=== PATIENT | male | born 1985 | race Hispanic/Latino ===

== ENCOUNTER 2024-07-30 20:49 | Inpatient (IN) | payer SELFPAY ==
[~2024-07-30 20:49] MED LIST: Iopamidol-370 76% 500 ML MDV (1 ML CHARGE) ONE
[2024-07-30 21:57] LABS: Hematocrit 41.8 % (42.0-52.0); Hemoglobin 14.5 g/dL (14.0-18.0); Mean Corpuscular HGB CONC 34.7 g/dL (32.0-36.0); Mean Corpuscular Hemoglobin 30.3 pg (27.0-31.0); Mean Corpuscular Volume 87.4 fL (78.0-98.0); Platelet Count 334 10x3/uL (130-400); RBC Distribution Width 11.7 % (11.5-14.5); Red Blood Cell (RBC) Count 4.78 mill/uL (4.70-6.10)
[2024-07-30 22:12] LABS: Chloride 102 mmol/L (98-107); Potassium 3.8 mmol/L (3.5-5.1); Sodium 135 mmol/L (136-145)
[2024-07-30 22:18] LABS: ALT (SGPT) 17 U/L (8-55); AST (SGOT) 15 U/L (5-34); Albumin 3.1 g/dL (3.5-5.0); Alkaline Phosphatase 84 U/L (40-110); Anion Gap 14 mmol/L (10-20); BUN (Urea Nitrogen) 10 mg/dL (8.9-20.6); Bilirubin, Total 0.9 mg/dL (0.2-1.2); Calc. Creatinine Clearance 0 mL/min (70-130); Calcium 8.7 mg/dL (7.8-10.44); Carbon Dioxide 24 mmol/L (22-29); Estimated GFR 113; Globulin 5.3 g/dL (2.4-3.5); Glucose 134 mg/dL (70-105); Lipase 11 U/L (8-78); Protein, Total 8.4 g/dL (6.0-8.3)
[2024-07-30 22:20] LABS: Bacteria/HPF None Seen HPF (None Seen); Bilirubin Negative (Negative); Blood, Urine 1+ (Negative); CAUTI Indications for Culture Fever or rigors; Clarity Clear (Clear); Glucose, Urine (Dipstick) Normal (Negative); Ketone, Urine Trace mg/dL (Negative); Leukocyte Negative Leu/uL (Negative); Nitrite Negative (Negative); Protein, Urine (Dipstick) 20 mg/dL (Neg-Trace); RBC/HPF 0-3 HPF (0-3); Specific Gravity, Urine 1.008 (1.002-1.036); Squamous Epithelial None Seen HPF (0-3); Urobilinogen Normal mg/dL (Less than 2); WBC/HPF 0-3 HPF (0-3)
[2024-07-30 22:23] LABS: Band 3 % (5-11); Eosinophils 30 % (0-10); Lymphocytes 12 % (21-51); Monocytes 4 % (0-10); Neutrophil 50 % (42-75); Plasma Cells 0 % (0-0); Platelet Adequacy Comment Appears Adequate; Total Cell Count 100
[2024-07-30 22:28] LABS: Urine Culture Reflex No No
[2024-07-30] MEDS ORDERED: Ketorolac Tromethamine 30 MG (1 mL) VIAL ONE (22:49)
[2024-07-31] MEDS ORDERED: cefTRIAXone (ROCEPHIN) 2 GM VIAL ONE (01:34)
[2024-07-31] MEDS ORDERED: Sodium Chloride 0.9% 100 ML ONE (01:34)
[2024-07-31] MEDS ORDERED: Azithromycin 500 MG VIAL ONE (02:18)
[2024-07-31] MEDS ORDERED: Dextrose 5% in Water 1,000 ML IV PRN (02:56)
[2024-07-31] MEDS ORDERED: Dextrose 50% Abboject 50 ML SYRINGE SLOW IVP PRN (02:56)
[2024-07-31] MEDS ORDERED: Glucagon 1 MG/ML KIT IM PRN (02:56)
[2024-07-31 04:24] LABS: Legionella Urinary Ag Negative (Negative); Strep pneumo Urine Ag NEGATIVE (NEGATIVE)
[2024-07-31 04:59] LABS: Hematocrit 38.4 % (42.0-52.0); Hemoglobin 13.2 g/dL (14.0-18.0); Mean Corpuscular HGB CONC 34.4 g/dL (32.0-36.0); Mean Corpuscular Hemoglobin 30.6 pg (27.0-31.0); Mean Corpuscular Volume 88.9 fL (78.0-98.0); Mean Platelet Volume 9.3 fL (7.4-10.4); Platelet Count 279 10x3/uL (130-400); RBC Distribution Width 11.8 % (11.5-14.5); Red Blood Cell (RBC) Count 4.32 mill/uL (4.70-6.10)
[2024-07-31 05:03] LABS: Anion Gap 13 mmol/L (10-20); BUN (Urea Nitrogen) 8 mg/dL (8.9-20.6); Calc. Creatinine Clearance 120 mL/min (70-130); Calcium 8.1 mg/dL (7.8-10.44); Carbon Dioxide 21 mmol/L (22-29); Chloride 107 mmol/L (98-107); Estimated GFR 123; Glucose 102 mg/dL (70-105); Potassium 3.6 mmol/L (3.5-5.1); Sodium 137 mmol/L (136-145)
[2024-07-31 05:30] LABS: Band 8 % (5-11); Eosinophils 46 % (0-10); Lymphocytes 7 % (21-51); Monocytes 4 % (0-10); Neutrophil 35 % (42-75); Platelet Adequacy Comment Platelets Normal
[2024-07-31] MEDS: Pantoprazole DR 40 MG TAB PO SCH (08:17)
[2024-07-31] MEDS: Acetaminophen 325 MG TAB PO PRN (15:29)
[2024-07-31] MEDS: Benzonatate 100 MG CAP PO PRN (15:32)
[2024-07-31] MEDS: guaiFENesin ER 600 MG TAB PO SCH (20:07)
[2024-07-31] MEDS: Insulin Lispro 100 UNIT/ML 10 ML VIAL SC PRN (22:16)
[2024-08-01] MEDS: Azithromycin 500 MG VIAL ONE (01:57)
[2024-08-01] MEDS: cefTRIAXone\\ROCEPHIN 1 GM in Sodium Chloride 0.9% 100 ML IVPB SCH (01:59)
[2024-08-01] MEDS: Azithromycin 500 MG in Sodium Chloride 0.9% 250 ML 250 ML IVPB SCH (02:04)
[2024-08-01 04:54] LABS: Anion Gap 13 mmol/L (10-20); BUN (Urea Nitrogen) 9 mg/dL (8.9-20.6); Calc. Creatinine Clearance 108 mL/min (70-130); Calcium 8.4 mg/dL (7.8-10.44); Carbon Dioxide 22 mmol/L (22-29); Chloride 106 mmol/L (98-107); Estimated GFR 119; Glucose 107 mg/dL (70-105); Magnesium 1.8 mg/dL (1.6-2.6); Potassium 3.4 mmol/L (3.5-5.1); Sodium 138 mmol/L (136-145)
[2024-08-01 05:12] LABS: Hematocrit 38.4 % (42.0-52.0); Hemoglobin 13.5 g/dL (14.0-18.0); Mean Corpuscular HGB CONC 35.2 g/dL (32.0-36.0); Mean Corpuscular Hemoglobin 30.2 pg (27.0-31.0); Mean Corpuscular Volume 85.9 fL (78.0-98.0); Mean Platelet Volume 9.8 fL (7.4-10.4); Platelet Count 306 10x3/uL (130-400); RBC Distribution Width 11.6 % (11.5-14.5); Red Blood Cell (RBC) Count 4.47 mill/uL (4.70-6.10)
[2024-08-01 05:17] LABS: HIV (1/2) Antibody/Antigen NONREACTIVE (NonReactive); HIV 1/2 INDEX 0.06 S/CO (<1.00)
[2024-08-01 05:58] LABS: Band 8 % (5-11); Eosinophils 41 % (0-10); Lymphocytes 7 % (21-51); Monocytes 1 % (0-10); Neutrophil 42 % (42-75); Platelet Adequacy Comment Platelets Normal
[2024-08-01] MEDS: Insulin Lispro 100 UNIT/ML 10 ML VIAL SC PRN (11:46)
[2024-08-01] MEDS: glipiZIDE 5 MG TAB PO SCH (13:49)
[2024-08-01] MEDS: Senokot S 8.6-50 MG TAB PO SCH (20:06)
[2024-08-01] MEDS: Heparin 5,000 UNITS/ML VIAL SC SCH (20:07)
[2024-08-01] MEDS ORDERED: Docusate 100 MG CAP PO SCH (21:00)
[2024-08-01] MEDS: Ketorolac Tromethamine 30 MG (1 mL) VIAL IVP SCH (21:59)
[2024-08-02] MEDS: cefTRIAXone\\ROCEPHIN 2 GM in Sodium Chloride 0.9% 100 ML IVPB SCH (01:11)
[2024-08-02 05:58] LABS: Hemoglobin 13.8 g/dL (14.0-18.0); Mean Corpuscular HGB CONC 34.5 g/dL (32.0-36.0); Mean Corpuscular Hemoglobin 30.4 pg (27.0-31.0); Mean Corpuscular Volume 88.1 fL (78.0-98.0); Mean Platelet Volume 9.4 fL (7.4-10.4); Platelet Count 310 10x3/uL (130-400); RBC Distribution Width 11.8 % (11.5-14.5); Red Blood Cell (RBC) Count 4.54 mill/uL (4.70-6.10)
[2024-08-02 06:03] LABS: Anion Gap 15 mmol/L (10-20); BUN (Urea Nitrogen) 13 mg/dL (8.9-20.6); Calc. Creatinine Clearance 104 mL/min (70-130); Calcium 8.7 mg/dL (7.8-10.44); Carbon Dioxide 24 mmol/L (22-29); Chloride 103 mmol/L (98-107); Estimated GFR 118; Glucose 95 mg/dL (70-105); Potassium 3.1 mmol/L (3.5-5.1); Sodium 139 mmol/L (136-145)
[2024-08-02 06:19] LABS: Band 3 % (5-11); Eosinophils 54 % (0-10); Lymphocytes 6 % (21-51); Neutrophil 37 % (42-75); Platelet Adequacy Comment Platelets Normal; Polychromasia SLIGHT = 2-3 cells HPF (0-2)
[2024-08-02] MEDS ORDERED: glipiZIDE 5 MG TAB PO SCH (07:30)
[2024-08-02] MEDS ORDERED: metroNIDAZOLE 500 MG TAB PO SCH ×2 (09:15→15:00)
[2024-08-02 09:48] LABS: Reference Lab Name LABCORP
[2024-08-02 10:07] LABS: Reference Lab Name LABCORP
[2024-08-02] MEDS: Potassium Chloride 20 MEQ TAB PO SCH ×2 (10:37→16:29)
[2024-08-02] MEDS ORDERED: metFORMIN 500 MG TAB PO SCH (14:00)
[2024-08-03 04:46] LABS: Anion Gap 12 mmol/L (10-20); BUN (Urea Nitrogen) 11 mg/dL (8.9-20.6); Calc. Creatinine Clearance 107 mL/min (70-130); Calcium 8.3 mg/dL (7.8-10.44); Carbon Dioxide 22 mmol/L (22-29); Chloride 108 mmol/L (98-107); Estimated GFR 119; Glucose 177 mg/dL (70-105); Potassium 4.1 mmol/L (3.5-5.1); Sodium 138 mmol/L (136-145)
[2024-08-03 05:14] LABS: Band 6 % (5-11); Eosinophils 40 % (0-10); Lymphocytes 7 % (21-51); Monocytes 4 % (0-10); Neutrophil 38 % (42-75); Platelet Adequacy Comment Platelets Normal; Polychromasia SLIGHT = 2-3 cells HPF (0-2); Reactive Lymphocytes 6 % (0-10)
[2024-08-03 05:15] LABS: Hematocrit 36.9 % (42.0-52.0); Hemoglobin 12.9 g/dL (14.0-18.0); Mean Corpuscular Hemoglobin 30.6 pg (27.0-31.0); Mean Corpuscular Volume 87.4 fL (78.0-98.0); Mean Platelet Volume 9.2 fL (7.4-10.4); Platelet Count 341 10x3/uL (130-400); RBC Distribution Width 11.8 % (11.5-14.5); Red Blood Cell (RBC) Count 4.22 mill/uL (4.70-6.10)
[2024-08-03 09:54] LABS: Reference Lab Name LABCORP
[2024-08-03] MEDS: Insulin Lispro 100 UNIT/ML 10 ML VIAL SC PRN (12:06)
[2024-08-03] MEDS: metFORMIN 500 MG TAB PO SCH (16:39)
[2024-08-03] MEDS: Multivit, Therapeutic 1 TAB PO SCH (20:22)
[2024-08-04] MEDS ORDERED: metFORMIN 500 MG TAB ONE (15:45)
[2024-08-04] MEDS ORDERED: metroNIDAZOLE 500 MG TAB ONE ×2 (15:45→20:12)
[2024-08-04] MEDS ORDERED: Acetaminophen 325 MG TAB ONE (18:20)
[2024-08-04] MEDS ORDERED: Senokot S 8.6-50 MG TAB ONE (20:12)
[2024-08-04] MEDS ORDERED: Multivit, Therapeutic 1 TAB ONE (20:12)
[2024-08-04] MEDS ORDERED: guaiFENesin ER 600 MG TAB ONE (20:12)
[2024-08-04] MEDS ORDERED: Heparin 5,000 UNITS/ML VIAL ONE (20:12)
[2024-08-05] MEDS ORDERED: cefTRIAXone (ROCEPHIN) 2 GM VIAL ONE (02:59)
[2024-08-05] MEDS ORDERED: Azithromycin 500 MG VIAL ONE (03:30)
[2024-08-05] MEDS ORDERED: metroNIDAZOLE 500 MG TAB ONE ×2 (07:52→21:43)
[2024-08-05] MEDS ORDERED: metFORMIN 500 MG TAB ONE (07:52)
[2024-08-05] MEDS ORDERED: guaiFENesin ER 600 MG TAB ONE ×2 (07:52→21:43)
[2024-08-05] MEDS ORDERED: Pantoprazole DR 40 MG TAB ONE (07:52)
[2024-08-05 17:27] LABS: Adenovirus F 40-41 Not Detected (Not Detected); Astrovirus Not Detected (Not Detected); C. difficile toxin A+B Not Detected (Not Detected); Campylobacter by PCR Not Detected (Not Detected); Cryptosporidium Not Detected (Not Detected); Cyclospora cayetanensis Not Detected (Not Detected); Entamoeba histolytica Not Detected (Not Detected); Enteroaggregative E. coli Not Detected (Not Detected); Enteropathogenic E. coli Not Detected (Not Detected); Enterotoxigenic E. coli Not Detected (Not Detected); Giardia lamblia Not Detected (Not Detected); Norovirus GI-GII Not Detected (Not Detected); Plesiomonas shigelloides Not Detected (Not Detected); Rotavirus A Not Detected (Not Detected); Salmonella Not Detected (Not Detected); Sapovirus Not Detected (Not Detected); Shiga-toxin-producing E coli Not Detected (Not Detected); Shigella/Enteroinvasive E coli Not Detected (Not Detected); Vibrio Not Detected (Not Detected); Vibrio cholerae Not Detected (Not Detected); Yersinia enterocolitica Not Detected (Not Detected)
[2024-08-05] MEDS: metroNIDAZOLE 500 MG TAB ONE ×5 (18:39→22:43)
[2024-08-05] MEDS ORDERED: Multivit, Therapeutic 1 TAB ONE (21:43)
[2024-08-06] MEDS ORDERED: cefTRIAXone (ROCEPHIN) 250 MG VIAL ONE (01:10)
[2024-08-06] MEDS ORDERED: Azithromycin 500 MG VIAL ONE (02:30)
[2024-08-06] MEDS ORDERED: Pantoprazole DR 40 MG TAB ONE (08:20)
[2024-08-06] MEDS ORDERED: Heparin 5,000 UNITS/ML VIAL ONE (08:20)
[2024-08-06] MEDS ORDERED: metFORMIN 500 MG TAB ONE (08:20)
[2024-08-06] MEDS ORDERED: metroNIDAZOLE 500 MG TAB ONE (08:20)
[2024-08-06 08:26] LABS: #Basophils 0.08 10x3/uL (0.0-0.2); %Basophils 0.4 % (0.0-1.0); %Eosinophils 16.6 % (0.0-10.0); %Lymphocytes 11.1 % (21.0-51.0); %Monocytes 5.5 % (0.0-10.0); %Neutrophils 65.8 % (42.0-75.0); Hematocrit 36.3 % (42.0-52.0); Hemoglobin 12.6 g/dL (14.0-18.0); Mean Corpuscular HGB CONC 34.7 g/dL (32.0-36.0); Mean Corpuscular Hemoglobin 29.9 pg (27.0-31.0); Mean Platelet Volume 9.1 fL (7.4-10.4); Platelet Count 401 10x3/uL (130-400); RBC Distribution Width 11.9 % (11.5-14.5); Red Blood Cell (RBC) Count 4.22 mill/uL (4.70-6.10)
[2024-08-06] MEDS: metroNIDAZOLE 500 MG TAB ONE ×2 (08:30→20:28)
[2024-08-06 08:58] LABS: Anion Gap 13 mmol/L (10-20); BUN (Urea Nitrogen) 12 mg/dL (8.9-20.6); Calc. Creatinine Clearance 97 mL/min (70-130); Calcium 8.8 mg/dL (7.8-10.44); Carbon Dioxide 22 mmol/L (22-29); Chloride 104 mmol/L (98-107); Estimated GFR 116; Glucose 163 mg/dL (70-105); Potassium 3.8 mmol/L (3.5-5.1); Sodium 135 mmol/L (136-145)
[2024-08-06] MEDS ORDERED: Polyethylene Glycol 3350 17 GM Packet PO PRN (16:27)
[2024-08-06] MEDS ORDERED: Multivit, Therapeutic 1 TAB PO SCH (17:00)
[2024-08-06] MEDS: Doxycycline 100 MG CAP PO SCH (20:28)
[2024-08-07 07:08] LABS: #Basophils 0.08 10x3/uL (0.0-0.2); %Basophils 0.5 % (0.0-1.0); %Eosinophils 19.8 % (0.0-10.0); %Lymphocytes 15.9 % (21.0-51.0); %Monocytes 5.9 % (0.0-10.0); %Neutrophils 57.4 % (42.0-75.0); Hematocrit 36.8 % (42.0-52.0); Hemoglobin 12.6 g/dL (14.0-18.0); Mean Corpuscular HGB CONC 34.2 g/dL (32.0-36.0); Mean Corpuscular Hemoglobin 29.5 pg (27.0-31.0); Mean Corpuscular Volume 86.2 fL (78.0-98.0); Mean Platelet Volume 9.5 fL (7.4-10.4); Platelet Count 461 10x3/uL (130-400); RBC Distribution Width 11.9 % (11.5-14.5); Red Blood Cell (RBC) Count 4.27 mill/uL (4.70-6.10)
[2024-08-07 07:41] LABS: Anion Gap 15 mmol/L (10-20); BUN (Urea Nitrogen) 11 mg/dL (8.9-20.6); Calc. Creatinine Clearance 103 mL/min (70-130); Calcium 8.7 mg/dL (7.8-10.44); Carbon Dioxide 22 mmol/L (22-29); Chloride 104 mmol/L (98-107); Estimated GFR 117; Glucose 168 mg/dL (70-105); Potassium 3.7 mmol/L (3.5-5.1); Sodium 137 mmol/L (136-145)
[2024-08-07] MEDS: metroNIDAZOLE 500 MG TAB ONE ×2 (09:20→20:10)
[2024-08-07 17:15] LABS: Hemoglobin A1c 8.8 % (4.0-6.0)
[2024-08-07 17:57] LABS: Bacteria/HPF None Seen HPF (None Seen); Bilirubin Negative (Negative); Blood, Urine Trace (Negative); CAUTI Indications for Culture Fever or rigors; Clarity Clear (Clear); Glucose, Urine (Dipstick) Normal (Negative); Ketone, Urine Negative (Negative); Leukocyte Negative Leu/uL (Negative); Nitrite Negative (Negative); Protein, Urine (Dipstick) 20 mg/dL (Neg-Trace); RBC/HPF 0-3 HPF (0-3); Specific Gravity, Urine 1.009 (1.002-1.036); Squamous Epithelial None Seen HPF (0-3); Urobilinogen Normal mg/dL (Less than 2); WBC/HPF 0-3 HPF (0-3); pH, Urine 6.5 (5.0-9.0)
[2024-08-07 17:59] LABS: Urine Culture Reflex No No
[2024-08-07 18:48] LABS: ALT (SGPT) 22 U/L (8-55); AST (SGOT) 25 U/L (5-34); Albumin 2.5 g/dL (3.5-5.0); Alkaline Phosphatase 90 U/L (40-110); Bilirubin, Direct 0.2 mg/dL (0.1-0.3); Bilirubin, Total 0.4 mg/dL (0.2-1.2); Lipase 16 U/L (8-78); Protein, Total 8.1 g/dL (6.0-8.3)
[2024-08-07 18:51] LABS: Base Excess 1.9 mEq/L (-2.0 to +3.0); Chloride (VBG) 101 mmol/L (98-106); Hematocrit-VBG 41 % (42.0-52.0); Hemoglobin (Hb) 13.9 g/dL (13.2-17.3); Potassium (VBG) 3.92 mmol/L (3.70-5.30); Sodium 137 mmol/L (133-146); pH (venous) 7.478 (7.32-7.43)
[2024-08-07] MEDS: Piperacillin/Tazobactam 3.375 GM in Sodium Chloride 0.9% 100 ML IVPB SCH (20:52)
[2024-08-07] MEDS: Fluconazole In NaCl,Iso-Osm 400 MG in Premix 1 BAG IVPB SCH (20:53)
[2024-08-07] MEDS ORDERED: Piperacillin/Tazobactam 3.375 GM in Sodium Chloride 0.9% 100 ML IVPB SCH (22:00)
[2024-08-08] MEDS: Piperacillin/Tazobactam 3.375 GM in Sodium Chloride 0.9% 100 ML IVPB SCH (00:39)
[2024-08-08] MEDS: Ondansetron PF 4 MG/2 ML Vial IVP PRN (03:38)
[2024-08-08] MEDS: metroNIDAZOLE 500 MG TAB ONE ×2 (08:28→20:06)
[2024-08-08] MEDS: Fluconazole In NaCl,Iso-Osm 400 MG in Premix 1 BAG IVPB SCH (08:40)
[2024-08-08 10:27] LABS: #Basophils 0.09 10x3/uL (0.0-0.2); %Basophils 0.6 % (0.0-1.0); %Lymphocytes 12.2 % (21.0-51.0); %Monocytes 6.3 % (0.0-10.0); %Neutrophils 63.5 % (42.0-75.0); Hemoglobin 11.2 g/dL (14.0-18.0); Mean Corpuscular HGB CONC 33.9 g/dL (32.0-36.0); Mean Corpuscular Hemoglobin 30.1 pg (27.0-31.0); Mean Corpuscular Volume 88.7 fL (78.0-98.0); Platelet Count 454 10x3/uL (130-400); RBC Distribution Width 11.9 % (11.5-14.5); Red Blood Cell (RBC) Count 3.72 mill/uL (4.70-6.10)
[2024-08-08 10:52] LABS: ALT (SGPT) 17 U/L (8-55); AST (SGOT) 14 U/L (5-34); Albumin 2.2 g/dL (3.5-5.0); Alkaline Phosphatase 81 U/L (40-110); Anion Gap 12 mmol/L (10-20); BUN (Urea Nitrogen) 11 mg/dL (8.9-20.6); Bilirubin, Total 0.4 mg/dL (0.2-1.2); Calc. Creatinine Clearance 90 mL/min (70-130); Calcium 8.1 mg/dL (7.8-10.44); Carbon Dioxide 21 mmol/L (22-29); Chloride 103 mmol/L (98-107); Estimated GFR 113; Globulin 5.3 g/dL (2.4-3.5); Glucose 328 mg/dL (70-105); Magnesium 1.8 mg/dL (1.6-2.6); Potassium 4.2 mmol/L (3.5-5.1); Protein, Total 7.5 g/dL (6.0-8.3); Sodium 132 mmol/L (136-145)
[2024-08-09 05:41] LABS: #Basophils 0.11 10x3/uL (0.0-0.2); %Basophils 0.7 % (0.0-1.0); %Eosinophils 20.7 % (0.0-10.0); %Lymphocytes 18.5 % (21.0-51.0); %Monocytes 6.2 % (0.0-10.0); %Neutrophils 53.4 % (42.0-75.0); Hematocrit 35.8 % (42.0-52.0); Hemoglobin 12.3 g/dL (14.0-18.0); Mean Corpuscular HGB CONC 34.4 g/dL (32.0-36.0); Mean Corpuscular Hemoglobin 29.7 pg (27.0-31.0); Mean Corpuscular Volume 86.5 fL (78.0-98.0); Mean Platelet Volume 8.9 fL (7.4-10.4); Platelet Count 466 10x3/uL (130-400); RBC Distribution Width 11.8 % (11.5-14.5); Red Blood Cell (RBC) Count 4.14 mill/uL (4.70-6.10)
[2024-08-09 05:56] LABS: Anion Gap 13 mmol/L (10-20); BUN (Urea Nitrogen) 11 mg/dL (8.9-20.6); Calc. Creatinine Clearance 89 mL/min (70-130); Calcium 8.8 mg/dL (7.8-10.44); Carbon Dioxide 25 mmol/L (22-29); Chloride 100 mmol/L (98-107); Estimated GFR 113; Glucose 193 mg/dL (70-105); Magnesium 1.9 mg/dL (1.6-2.6); Potassium 4.2 mmol/L (3.5-5.1); Sodium 134 mmol/L (136-145)
[2024-08-09] MEDS: Enoxaparin 30 MG (0.3 mL) SYRINGE SC SCH (08:31)
[2024-08-09] MEDS: metroNIDAZOLE 500 MG TAB ONE (20:31)
[2024-08-09] MEDS: Acetaminophen 650 MG/20.3 ML UDCUP PO PRN (20:38)
[2024-08-10 06:29] LABS: Hematocrit 34.3 % (42.0-52.0); Hemoglobin 11.7 g/dL (14.0-18.0); Mean Corpuscular HGB CONC 34.1 g/dL (32.0-36.0); Mean Corpuscular Hemoglobin 29.6 pg (27.0-31.0); Mean Corpuscular Volume 86.8 fL (78.0-98.0); Mean Platelet Volume 9.5 fL (7.4-10.4); Platelet Count 492 10x3/uL (130-400); RBC Distribution Width 11.9 % (11.5-14.5); Red Blood Cell (RBC) Count 3.95 mill/uL (4.70-6.10)
[2024-08-10 06:38] LABS: Anion Gap 11 mmol/L (10-20); BUN (Urea Nitrogen) 11 mg/dL (8.9-20.6); Calc. Creatinine Clearance 84 mL/min (70-130); Calcium 8.7 mg/dL (7.8-10.44); Carbon Dioxide 26 mmol/L (22-29); Chloride 99 mmol/L (98-107); Estimated GFR 111; Glucose 310 mg/dL (70-105); Potassium 4.1 mmol/L (3.5-5.1); Sodium 132 mmol/L (136-145)
[2024-08-10 08:23] LABS: Band 6 % (5-11); Eosinophils 27 % (0-10); Lymphocytes 6 % (21-51); Monocytes 5 % (0-10); Neutrophil 54 % (42-75); Ovalocytes SLIGHT = 2-5 cells HPF (0-1); Platelet Adequacy Comment Platelets Increased; Polychromasia SLIGHT = 2-3 cells HPF (0-2); Reactive Lymphocytes 2 % (0-10)
[2024-08-10 09:50] VITALS: BP 126/84; TEMP 98.1
[2024-08-10] MEDS: metFORMIN 500 MG TAB PO SCH (09:51)
[2024-08-10] MEDS: Fluconazole 100 MG TAB PO SCH (09:52)
[2024-08-10] MEDS: metroNIDAZOLE 500 MG TAB ONE (10:14)
[2024-08-10] MEDS: Saxagliptin 2.5 MG TAB PO SCH (13:50)
[2024-08-10 16:14] LABS: A. flavus Negative (Neg:<1:1); A. fumigatus Negative (Neg:<1:1); A. niger Negative (Neg:<1:1)
[2024-08-10 22:08] LABS: Mycoplasma pneumoniae IgG AB 469 U/mL (0-99); Mycoplasma pneumoniae IgM AB Less than 770 U/mL (0-769)
[2024-08-11] MEDS ORDERED: Saxagliptin 2.5 MG TAB PO SCH (09:00)
== END 2024-08-10 16:10 | disposition home or self-care (01) | DRG 871 ==
LOC: ERS 20:49 → MSONC 07-31 02:56 → OBSVTOIN 07-31 07:36
PROVIDERS: ADMIT Internal Medicine; ATTEND Internal Medicine
DX: A41.50 Gram-negative sepsis, unspecified (principal); J15.69 Pneumonia due to other Gram-negative bacteria; E87.1 Hypo-osmolality and hyponatremia; E11.9 Type 2 diabetes mellitus without complications; K21.9 Gastro-esophageal reflux disease without esophagitis; D64.9 Anemia, unspecified; D72.10 Eosinophilia, unspecified; E87.6 Hypokalemia; R59.1 Generalized enlarged lymph nodes; Z79.4 Long term (current) use of insulin; Z79.899 Other long term (current) drug therapy; Z79.01 Long term (current) use of anticoagulants
CPT/HCPCS: 36415; 36416; 70450; 71045; 71046; 71250; 74177; 80048; 80053; 80076; 81001; 82785; 82805; 83036; 83605; 83630; 83690; 83735; 84145; 85025; 86141; 86606; 86635; 86698; 87015; 87040; 87070; 87081; 87205; 87206; 87328; 87329; 87385; 87389; 87428; 87449; 87507; 87899; 93005; 93010; 94760; 96361; 96365; 96375; G0378; J0456; J0696; J1450; J1644; J1650; J1815; J1885; J2405; J2543; J7050; Q9967